=== PATIENT | female | born 2000 | race Caucasian/White ===

== ENCOUNTER 2024-10-05 06:28 | Emergency (ER) | payer BC, SELFPAY ==
[2024-10-05 06:40] VITALS: BP 107/75; PULSE 75; RESP 18; TEMP 36.8; O2SAT 97; BMI 19.8
--- NOTE | 2024-10-05 06:46 | ED.GENADULT ---
HPI - General Adult General Chief complaint: Sore Throat Stated complaint: Tonsillitis Time Seen by Provider: 10/05/24 06:46 History of Present Illness HPI narrative: CC: Sore Throat pt. with sore throat since Thursday. denies n/v, diarrhea, fevers. 23-year-old young woman presenting to the emergency department with concern of intense sore throat. Two days now symptoms. No fever. No rash. No particular exposures. Has taken combination medication 2 tabs which looked to have added up to 500 mg of acetaminophen and 250 mg of ibuprofen per dosing. Does not seem to change the pain much. Also gargled with eyeballed quantity of salt water. Related Data Previous Rx's ?Medication ?Instructions ?Recorded prednisone 20 mg tablet 40 mg (2 x 20 mg) PO DAILY 4 days 10/05/24 #8 tabs Review of Systems Status of ROS: Reports: 6 or more systems reviewed and unremarkable except as noted in History and below [facility] Medical History ADHD ?F90.9 - Attention-deficit hyperactivity disorder, unspecified type (ICD-10) Surgical History (Updated 10/05/24 @ 06:40 by Keo Amanda RN) No significant past surgical history Social History Smoking Status: Never smoker Second hand tobacco smoke exposure: No How often do you have a drink containing alcohol: never AUDIT-C Alcohol total score: 0 Non-prescribed substance use: denies use Exam Narrative: Exam Narrative: Pleasant. NAD however, speaking slightly affected but not truly with trismus. Neck is supple without anterior or posterior lymphadenopath. Breathing easily. Heart in regular rate and rhythm. Oropharynx is with moderately bright erythema generally. No edema were remarkable asymmetry. Little bit of exudate on very small tonsils noted on the left. Const: Vital Signs, click to edit/add: Vital Signs - 24 hr 10/05/24 06:40 Temperature 98.2 F Pulse Rate [Right Pulse Oximeter] 75 Respiratory Rate 18 Blood Pressure [Ri ght Upper Arm] 107/75 Pulse Oximetry 97 Oxygen Delivery Me thod Room Air Documenting provider has reviewed patient's vital signs: yes Course Vital Signs Vital signs: Initial Vital Signs Temperature 98.2 F 10/05/24 06:40 Temperature Source Temporal Artery Scan 10/05/24 06:40 Pulse Rate 75 10/05/24 06:40 Respiratory Rate 18 10/05/24 06:40 Blood Pressure 107/75 10/05/24 06:40 Blood Pressure Mean 85 10/05/24 06:40 Blood Pressure Position Sitting 10/05/24 06:40 Pulse Oximetry 97 10/05/24 06:40 Oxygen Delivery Method Room Air 10/05/24 06:40 Vital Signs Temperature 98.2 F 10/05/24 06:40 Pulse Rate 75 10/05/24 06:40 Respiratory Rate 18 10/05/24 06:40 Blood Pressure 107/75 10/05/24 06:40 Pulse Oximetry 97 10/05/24 06:40 Oxygen Delivery Method Room Air 10/05/24 06:40 Temperature 98.2 F 10/05/24 06:40 Pulse Rate 75 10/05/24 06:40 Respiratory Rate 18 10/05/24 06:40 Blood Pressure 107/75 10/05/24 06:40 Pulse Oximetry 97 10/05/24 06:40 Oxygen Delivery Method Room Air 10/05/24 06:40 Medications Administered Medications: Discontinued Medications Generic Name Dose Route Start Last Admin Trade Name Freq PRN Reason Stop Dose Admin Benzocaine 1 each 10/05/24 06:56 10/05/24 07:41 Benzocaine 20 % Trail PO 10/05/24 06:57 1 each ONCE ONE Administration Prednisone 60 mg 10/05/24 07:40 10/05/24 08:19 Prednisone 20 Mg Tablet PO 10/05/24 07:41 60 mg ONCE ONE Administration Medical Decision Making MDM Narrative Medical decision making narrative: I do not think has an abscess here. Appears to have pharyngitis. Likely viral etiology. Would screen however for strep COVID and influenza. Can take more ibuprofen than she is. But offered relief with Hurricaine spray. She did except that and did help least for a little while. Swabs are negative. Will treat symptoms then with prednisone; given dose here in the emergency department. See patient discharge plan for further discussion Focus on hydration with water. Consider sleeping under the mist of a cool mist humidifier. If you would like to gargle with salt water, consider putting 1/4 tsp into 4 oz of warm water Sending in a prescription of prednisone. You shouldn't need to take anymore today. Can take up to 600 mg of ibuprofen or up to 1000 mg of acetaminophen per dose. There are [id number] throat sprays or lozenges like Chloraseptic or Sucrets that might be helpful. Lab Data Labs: Lab Results 10/05/24 Range/Units 06:56 SARS-CoV-2 (PCR) Negative SARS-CoV-2 (Negative) Influenza Type A (PCR) Negative PCR FLU A (Negative) Influenza Type B (PCR) Negative PCR FLU B (Negative) Group A Strep DNA NOT DETECTED (Not Detectd) Discharge Plan Discharge Clinical Impression: Pharyngitis Patient Disposition: Home, Self-Care Condition: Stable Instructions: Pharyngitis (ED) Additional Instructions: Focus on hydration with water. Consider sleeping under the mist of a cool mist humidifier. If you would like to gargle with salt water, consider putting 1/4 tsp into 4 oz of warm water Sending in a prescription of prednisone. You shouldn't need to take anymore today. Can take up to 600 mg of ibuprofen or up to 1000 mg of acetaminophen per dose. There are [id number] throat sprays or lozenges like Chloraseptic or Sucrets that might be helpful. Prescriptions: New prednisone 20 mg tablet 40 mg PO DAILY 4 Days Qty: 8 1RF Follow Up/Referrals: Provider,Not a Local [Primary Care Provider] - Stand Alone Forms: [employer] Info Instructions
[2024-10-05 07:35] LABS: Strep A DNA Probe* NOT DETECTED (Not Detectd)
[2024-10-05] MEDS: BENZOCAINE 20 % SPRAY 1 EACH PO (07:41)
[2024-10-05 07:50] LABS: PCR FLU A Negative PCR FLU A (Negative); PCR FLU B Negative PCR FLU B (Negative); SARS PCR* Negative SARS-CoV-2 (Negative)
[2024-10-05] MEDS: predniSONE 20 MG TABLET 60 MG PO (08:19)
== END 2024-10-05 08:25 | disposition home or self-care (01) ==
PROVIDERS: Emergency Provider Family Medicine
DX: J02.9 Acute pharyngitis, unspecified (principal)
CPT/HCPCS: 87631; 87651; 99283; A9270; J7512